=== PATIENT | male | born 1985 | race Hispanic/Latino ===

== ENCOUNTER 2021-07-11 16:43 | Emergency (ER) | payer OTHER ==
[2021-07-11 17:20] LABS: HEMATOCRIT 48.1 % (42-54); MEAN CORPUSCULAR HEMOGLOBIN 28.3 pg (27.0-33.0); MEAN CORPUSCULAR VOLUME 88.3 fL (79-99); PLATELET COUNT (AUTO) 300 K/uL (130-400); RED BLOOD CELL COUNT(AUTO) 5.45 MIL/uL (4.50-6.20); RED CELL DISTRIBUTION WIDTH 14.1 % (11.0-15.5); WHITE BLOOD COUNT (AUTO) 11.8 K/uL (4.8-10.8)
[2021-07-11 17:32] LABS: CREATININE 0.8 mg/dL (0.5-1.5)
[2021-07-11 18:11] LABS: EOSINOPHILS % (MANUAL) 11 % (1-6); LYMPHOCYTES % (MANUAL) 15 % (22-44); MAN.DIFF COMMENT-IMPRESSION MANUAL DIFFERENTIAL; MONOCYTES % (MANUAL) 5 % (2-9); SEGMENTED NEUTROPHILS % 69 % (40-70)
[2021-07-11 18:12] LABS: PLATELET MORPHOLOGY COMMENT ADEQUATE
[2021-07-11 22:47] VITALS: BP 159/107
[2021-07-11] MEDS ORDERED: OSEL75 PO (22:50)
[2021-07-11] MEDS ORDERED: BENZ-39 PO (22:50)
== END 2021-07-11 23:08 | disposition home or self-care (01) ==
LOC: EDH 16:43
DX: J10.1 Influenza due to other identified influenza virus with other respiratory manifestations (principal); R04.2 Hemoptysis; E66.01 Morbid (severe) obesity due to excess calories; Z20.822 Contact with and (suspected) exposure to COVID-19
CPT/HCPCS: 36415; 71045; 80048; 82550; 83880; 84484; 85025; 87635; 87804 ×2; 93005; 99285; C9803